=== PATIENT | male | born 1980 | race Caucasian/White ===

== ENCOUNTER 2020-09-11 01:30 | Outpatient (CLI) | payer MEDICAID, SELFPAY ==
[2020-09-11 14:03] LABS: Calculated LDL 79 mg/dL (<100); Cholesterol 155 mg/dL (<200); HDL Cholesterol 70 mg/dL (40-60); Triglyceride 34 mg/dL (<150)
== END 2020-09-11 01:31 | disposition home or self-care (01) ==
LOC: LOS 01:30
PROVIDERS: PCP Nurse Practitioner Family; Visit Provider Nurse Practitioner Family
DX: Z13.1 Encounter for screening for diabetes mellitus (principal); Z13.220 Encounter for screening for lipoid disorders
CPT/HCPCS: 36415; 80061; 83036

== ENCOUNTER 2023-10-09 14:35 | Outpatient (CLI) | payer MEDICAID, SELFPAY ==
[2023-10-09 08:50] LABS: Calculated LDL 186 mg/dL (<100); Cholesterol 256 mg/dL (<200); HDL Cholesterol 59 mg/dL (40-60); Triglyceride 55 mg/dL (<150)
[2023-10-10 18:51] LABS: Zinc, S 148 mcg/dL (60-106)
== END 2023-10-09 14:36 | disposition home or self-care (01) ==
LOC: LBO 14:36
PROVIDERS: PCP Naturopath; Visit Provider Naturopath
DX: E78.5 Hyperlipidemia, unspecified (principal); R53.83 Other fatigue
CPT/HCPCS: 36415; 80061; 84630

== ENCOUNTER 2023-12-29 14:50 | Outpatient (CLI) | payer MEDICAID, SELFPAY ==
[2023-12-29 09:21] LABS: Vitamin D 25 Total 69.6 ng/mL (30-100)
[2023-12-29 09:49] LABS: Calculated LDL 139 mg/dL (<100); Cholesterol 206 mg/dL (<200); HDL Cholesterol 56 mg/dL (40-60); Triglyceride 56 mg/dL (<150)
[2023-12-31 10:16] LABS: Apolipoprotein B, S 94 mg/dL
[2024-01-02 15:57] LABS: Zinc, S 146 mcg/dL (60-106)
== END 2023-12-29 14:51 | disposition home or self-care (01) ==
LOC: LBO 14:50
PROVIDERS: PCP Naturopath; Visit Provider Naturopath
DX: E78.5 Hyperlipidemia, unspecified (principal); E67.3 Hypervitaminosis D; E83.2 Disorders of zinc metabolism
CPT/HCPCS: 36415; 80061; 82172; 82306; 84630

== ENCOUNTER 2024-10-03 03:01 | Outpatient (CLI) | payer MEDICAID, SELFPAY ==
[2024-10-03 07:44] LABS: Abs Immature Grans 0.01 10^3/uL (0.0-0.06); Absolute Basophil Count 0.02 10^3/uL (0.0-0.2); Absolute Eosinophil Count 0.03 10^3/uL (0.0-0.7); Absolute Lymphocyte Count 0.65 10^3/uL (1.2-3.4); Absolute Monocyte Count 0.68 10^3/uL (0.1-0.8); Absolute Neutrophil Count 2.78 10^3/uL (1.2-6.7); Basophils % 0.5 %; Eosinophils % 0.7 %; HGB 15.6 g/dL (13.5-17.5); Immature Grans % 0.2 %; Lymphocytes % 15.6 %; MCH 31.6 pg (27.0-33.0); MCHC 33.9 % (32.0-36.0); MCV 93 fL (80-95); MPV 8.7 fL (8.0-11.0); Monocytes % 16.3 %; Neutrophils % 66.7 %; Platelet Count 156 10^3/uL (130-400); RBC 4.94 10^6/uL (4.36-5.78); RDW 12.4 % (11.8-14.1); RDW-SD 42.4 fL; WBC 4.17 10^3/uL (4.4-10.8)
[2024-10-03 08:12] LABS: Hemoglobin A1C 5.3 % (<5.7)
[2024-10-03 09:13] LABS: ALT 40 U/L (16-63); AST 22 U/L (15-37); Albumin 4.2 g/dL (3.4-5.0); Alkaline Phosphatase 63 U/L (46-116); Anion Gap 8.1 mmol/L (3-11); BUN 13 mg/dL (7-18); Bilirubin, Total 0.71 mg/dL (0.2-1.0); CO2 29.9 mmol/L (21.0-32.0); Calcium 9.6 mg/dL (8.5-10.1); Calculated LDL 132 mg/dL (<100); Chloride 102 mmol/L (98-107); Cholesterol 211 mg/dL (<200); Folate > 20.0 ng/mL (8.6-20.0); Glucose 81 mg/dL (74-106); HDL Cholesterol 72 mg/dL (40-60); Potassium 4.1 mmol/L (3.5-5.1); Sodium 140 mmol/L (136-145); TSH 0.84 uIU/mL (0.36-3.74); Total Protein 7.6 g/dL (6.4-8.2); Triglyceride 39 mg/dL (<150); Vitamin B12 1468 pg/mL (193-986); Vitamin D 25 Total 99.8 ng/mL (30-100)
[2024-10-03 21:49] LABS: Estradiol 23 pg/mL (<40)
[2024-10-04 09:42] LABS: Insulin <3.0 uIU/mL (<29.0)
[2024-10-05 12:17] LABS: Zinc, S 122 mcg/dL (60-106)
[2024-10-10 16:22] LABS: Testosterone, Free 12.8 ng/dL (4.26-16.4); Testosterone, Total 782 ng/dL (240-950)
== END 2024-10-03 03:02 | disposition home or self-care (01) ==
PROVIDERS: PCP Naturopath; Visit Provider Naturopath
DX: Z00.01 Encounter for general adult medical examination with abnormal findings (principal); E72.12 Methylenetetrahydrofolate reductase deficiency; E55.9 Vitamin D deficiency, unspecified
CPT/HCPCS: 36415; 80053; 80061; 82306; 83090; 84402; 84403; 84630; 82607; 82670; 82746; 83036; 83525; 83735; 84443; 85025

== ENCOUNTER 2024-12-06 13:28 | Outpatient (CLI) | payer MEDICAID, SELFPAY ==
[2024-12-06 13:16] LABS: Abs Immature Grans 0.01 10^3/uL (0.0-0.06); Absolute Basophil Count 0.04 10^3/uL (0.0-0.2); Absolute Eosinophil Count 0.12 10^3/uL (0.0-0.7); Absolute Lymphocyte Count 1.46 10^3/uL (1.2-3.4); Absolute Monocyte Count 0.57 10^3/uL (0.1-0.8); Absolute Neutrophil Count 5.12 10^3/uL (1.2-6.7); Basophils % 0.5 %; Eosinophils % 1.6 %; HCT 43.8 % (40.0-50.0); HGB 14.9 g/dL (13.5-17.5); Immature Grans % 0.1 %; Lymphocytes % 19.9 %; MCV 94 fL (80-95); Monocytes % 7.8 %; Neutrophils % 70.1 %; Platelet Count 207 10^3/uL (130-400); RBC 4.66 10^6/uL (4.36-5.78); RDW 12.2 % (11.8-14.1); RDW-SD 42.4 fL; WBC 7.32 10^3/uL (4.4-10.8)
[2024-12-06 14:26] LABS: Iron 94 ug/dL (65-175); Total Iron Binding Capacity 278 ug/dL (250-450); Transferrin Sat 34 % (20-55)
[2024-12-06 14:39] LABS: Ferritin 232 ng/mL (26-388)
[2024-12-09 13:31] LABS: Copper, Serum 87 mcg/dL (73-129); Zinc, S 111 mcg/dL (60-106)
== END 2024-12-06 13:29 | disposition home or self-care (01) ==
LOC: LBO 13:29
PROVIDERS: PCP Naturopath; Visit Provider Naturopath
DX: R79.0 Abnormal level of blood mineral (principal); Z13.88 Encounter for screening for disorder due to exposure to contaminants
CPT/HCPCS: 36415; 82525; 84630; 82728; 83540; 83550; 85025